=== PATIENT | female | born 1990 | race Caucasian/White ===

== ENCOUNTER 2022-09-16 18:43 | Emergency (ER) | payer MEDICAID ==
[2022-09-16] MEDS: DOBUTamine DRIP 250 ML IV SCH ×2 (19:00→21:33)
[2022-09-16] MEDS ORDERED: DOBUTamine DRIP 250 ML IV ONE (19:02)
--- NOTE | 2022-09-16 21:35 | ED General ---
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 PT BROUGHT TO ED [address] CABAN NOTIFIED. PT LIVES IN [place]. Source of Information: Patient Exam Limitations: No Limitations History of Present Illness Date Seen by Provider: Sep 16, 2022 Time Seen by Provider: 18:45 Initial Comments Patient is a 31-year-old female with history of cardiomyopathy with LVAD placement who presents with LVAD battery depletion warning reporting low battery life of 30 minutes. Patient is visiting from [place] and does not have her b ackup battery or senior tax accountant present with her. The LVAD was placed at [facility] in [place] 90 minutes away from this hospital. Patient does not have any symptoms and was driven here by a family member. Timing/Duration: 1/2 Hour Modifying Factors: improves with Other Associated Systoms: Other Allergies and Home Medications Allergies Coded Allergies: No Known Drug Allergies (Unverified , 09/16/22) Patient Home Medication List Home Medication List Reviewed: Yes Review of Systems Review of Systems Constitutional: see HPI EENTM: see HPI Respiratory: see HPI Cardiovascular: see HPI Past [id number] Hx Patient Social History Tobacco Use?: No Physical Exam Vital Signs Vital Signs - First Documented 09/16/22 18:45 Temp 36.8 Pulse 110 Resp 24 Pulse Ox 98 Capillary Refill : Less Than 3 Seconds Height, Weight, BMI Height: '" Weight: lbs. oz. kg; BMI Method: General Appearance: No Apparent Distress, WD/WN Eyes: Bilateral Eye Normal Inspection, Bilateral Eye PERRL, Bilateral Eye EOMI HEENT: PERRL/EOMI, Pharynx Normal Neck: Full Range of Motion Respiratory: Lungs Clear Cardiovascular: Other Focused Exam Sepsis Stage: Ruled Out Progress/Results/Core Measures Suspected Sepsis SIRS Temperature: Pulse: 110 Respiratory Rate: 24 Blood Pressure / Mean: Results/Orders My Orders Orders - BREANNA CABAN DO Dobutamine Drip (Dobutrex Drip) (09/16/22 19:02) Vital Signs/I&O 09/16/22 18:45 Temp 36.8 Pulse 110 Resp 24 B/P (MAP) Pulse Ox 98 Capillary Refill : Less Than 3 Seconds Departure Communication (Admissions) Patient's LVAD team contacted at [facility] recommended dobutamine infusion and expedited transfer to [facility]. No flight service available due to low visibility. Patient will be transferred emergently to [facility] emergency department with Dr. Romero from cardiology excepting. Patient is a full code. Patient transferred to the closest LVAD facility. Impression Primary Impression: Left ventricular assist device (LVAD) complication Disposition: 02 XFER SHT-TRM HOSP Condition: Critical Transfer Transfer Reason: Exceeds level of care Time Spoke to Accepting Phy: 19:15 (Dr. Matias) Departure-Patient Inst. Referrals: NO,LOCAL PHYSICIAN (PCP/Family) Primary Care Physician BREANNA CABAN DO Sep 16, 2022 21:35
[2022-09-16] MEDS ORDERED: POTA10CA43 PO (23:19)
[2022-09-16] MEDS ORDERED: WARF4TAB3 PO (23:19)
[2022-09-16] MEDS ORDERED: AMIO400T5 PO (23:19)
[2022-09-16] MEDS ORDERED: BUME1TAB8 PO (23:19)
[2022-09-16] MEDS ORDERED: BUSP10TA95 PO (23:19)
== END 2022-09-16 19:16 | disposition short-term general hospital (02) ==
LOC: ER FS 18:49
DX: T82.191A Other mechanical complication of cardiac pulse generator (battery), initial encounter (principal); Z28.311 Partially vaccinated for COVID-19
CPT/HCPCS: 99291